=== PATIENT | female | born 1995 | race American Indian/Alaskan Native ===

== ENCOUNTER 2018-06-24 11:36 | Emergency (ER) | payer MEDICAID, OTHER ==
[2018-06-24 11:45] VITALS: BP 116/67
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
== END 2018-06-24 13:51 | disposition home or self-care (01) ==
LOC: ED 11:36
DX: S13.9XXA Sprain of joints and ligaments of unspecified parts of neck, initial encounter (principal); S20.219A Contusion of unspecified front wall of thorax, initial encounter; D64.9 Anemia, unspecified; V49.49XA Driver injured in collision with other motor vehicles in traffic accident, initial encounter; Y93.89 Activity, other specified; Y92.410 Unspecified street and highway as the place of occurrence of the external cause; Y99.8 Other external cause status
CPT/HCPCS: 71046; 72040